=== PATIENT | female | born 1980 | race Caucasian/White ===

== ENCOUNTER 2016-10-02 02:30 | Emergency (ER) | payer OTHER | END 2016-10-02 04:50 | disposition home or self-care (01) | LOC: ER1 02:30 | DX: N61.1 Abscess of the breast and nipple (principal); E11.9 Type 2 diabetes mellitus without complications | CPT/HCPCS: 96372; 99282; J2270 ==

== ENCOUNTER 2016-10-04 12:13 | Emergency (ER) | payer OTHER | END 2016-10-04 13:20 | disposition home or self-care (01) | LOC: ER1 12:13 | DX: L02.213 Cutaneous abscess of chest wall (principal); E11.9 Type 2 diabetes mellitus without complications | CPT/HCPCS: 99282 ==